=== PATIENT | male | born 1970 | race Caucasian/White ===

== ENCOUNTER 2018-09-17 20:35 | Emergency (ER) | payer SELFPAY ==
--- NOTE | 2018-09-17 20:49 | Emergency Department Report ---
Blank Doc - Documentation Documentation: This is a 48-year-old male that presents with RUQ abdominal pain with nausea. Denies any vomiting. This initial assessment/diagnostic orders/clinical plan/treatment(s) is/are subject to change based on patient's health status, clinical progression and re- assessment by fellow clinical providers in the ED. Further treatment and workup at subsequent clinical providers discretion. Patient/guardians urged not to elope from the ED as their condition may be serious if not clinically assessed and managed. Initial orders include: 1- Patient sent to [facility] for further evaluation and treatment 2- labs
[2018-09-17 20:51] VITALS: BP 139/97
== END 2018-09-17 21:30 | disposition left against medical advice (07) ==
LOC: ED 20:35
DX: R10.11 Right upper quadrant pain (principal); Z53.21 Procedure and treatment not carried out due to patient leaving prior to being seen by health care provider